=== PATIENT | male | born 1965 | race Caucasian/White ===

== ENCOUNTER 2018-08-26 13:39 | Inpatient (IN) | payer MEDICAID ==
[~2018-08-26] VITALS: Ht 177.8 cm; Wt 113.1 kg
[2018-08-26] MEDS ORDERED: FERR236T3 PO (13:53)
[2018-08-26] MEDS ORDERED: ASPIRIN 81MG TABLET PO ONE (15:15)
[2018-08-26] MEDS: NITROGLYCERIN 0.4MG TABLET SL SL PRN ×2 (15:33→15:44)
[2018-08-26 15:35] LABS: BASOPHILS % 1.2 % (0.0-2.0); EOSINOPHILS % 0.5 % (0.0-5.0); HEMOGLOBIN. 14.1 g/dL (14.0-18.0); MEAN CORPUSCULAR HEMOGLOBIN 24.5 pg (28.0-32.0); MEAN CORPUSCULAR VOLUME 78.6 fL (80.0-94.0); MEAN PLATELET VOLUME 8.6 fl (7.4-10.4); NEUTROPHILS % 67.3 % (40.0-76.0); PLATELET 264 x1000/uL (130-400); RED BLOOD CELL COUNT 5.73 mill/uL (4.7-6.1); RED CELL DISTRIBUTION WIDTH 19.6 % (11.6-14.6)
[2018-08-26 15:42] LABS: CHLORIDE 105 mEq/L (98-107)
[2018-08-26] MEDS ORDERED: ONDANSETRON HCL 4MG/2ML INJ IV ONE (17:00)
[2018-08-26] MEDS ORDERED: HYDROCODONE/ACETAMINOPHEN 5/325MG TABLET PO ONE (17:00)
[2018-08-26] MEDS ORDERED: SODIUM POLYSTYRENE SULFONATE 15 G/60 ML BOT PO ONE (18:00)
[2018-08-26 21:21] VITALS: BP 117/71
[2018-08-26 22:00] VITALS: BP 112/71
[2018-08-26] MEDS ORDERED: ONDANSETRON HCL 4MG/2ML INJ IV PRN (23:15)
[2018-08-26] MEDS ORDERED: DIPHENHYDRAMINE 50MG/ML VIAL IV PRN (23:15)
[2018-08-26] MEDS ORDERED: MAGNESIUM/ALUMINUM HYDROXIDE/SIMETHICONE 30ML UDC PO PRN (23:15)
[2018-08-26] MEDS ORDERED: GUAIFENESIN 200MG/10ML SUGAR FREE UDC PO PRN (23:15)
[2018-08-26] MEDS ORDERED: DOCUSATE SODIUM 100MG CAPSULE PO PRN (23:15)
[2018-08-26] MEDS ORDERED: HYDRALAZINE 20MG/ML VIAL IV PRN (23:15)
[2018-08-26] MEDS ORDERED: IPRATROPIUM/ALBUTEROL 0.5-3(2.5)MG/3ML NEB INH PRN (23:15)
[2018-08-26] MEDS ORDERED: NA PHOS,M-B/NA PHOS,DI-BA ENEMA 118ML PR PRN (23:15)
[2018-08-26] MEDS ORDERED: HYDROCODONE/ACETAMINOPHEN 10/325MG TABLET PO PRN (23:15)
[2018-08-26] MEDS ORDERED: CLONIDINE 0.1MG TABLET PO PRN (23:15)
[2018-08-26] MEDS ORDERED: LORAZEPAM 2MG/ML CPJ IV PRN (23:15)
[2018-08-26] MEDS ORDERED: ACETAMINOPHEN 325MG TABLET PO PRN (23:15)
[2018-08-27] VITALS: BP 117/66
[2018-08-27] MEDS: HYDROMORPHONE HCL/PF 2MG/ML CPJ IV PRN ×7 (00:01→23:50)
[2018-08-27 04:00] VITALS: BP 103/70
[2018-08-27] MEDS: SODIUM CHLORIDE 0.9% INJ 3ML FLUSH IVF SCH ×3 (06:47→23:04)
[2018-08-27 07:11] LABS: CHLORIDE 108 mEq/L (98-107)
[2018-08-27 07:20] LABS: BASOPHILS % 0.5 % (0.0-2.0); EOSINOPHILS % 1.1 % (0.0-5.0); HEMATOCRIT. 40.9 % (42.0-52.0); LYMPHOCYTES % 33.5 % (20.0-50.0); MEAN CORPUSCULAR HEMOGLOBIN 24.8 pg (28.0-32.0); MEAN CORPUSCULAR VOLUME 78.1 fL (80.0-94.0); MEAN PLATELET VOLUME 8.7 fl (7.4-10.4); MONOCYTES % 9.8 % (2.0-8.0); NEUTROPHILS % 55.1 % (40.0-76.0); PLATELET 244 x1000/uL (130-400); RED BLOOD CELL COUNT 5.25 mill/uL (4.7-6.1); RED CELL DISTRIBUTION WIDTH 19.7 % (11.6-14.6); T4 FREE 1.03 ng/dL (0.76-1.46)
[2018-08-27 07:21] LABS: LDL CHOLESTEROL 67 mg/dL (5-100)
[2018-08-27 07:22] LABS: CREATINE KINASE 43 IU/L (39-308); HDL CHOLESTEROL 38 mg/dL (40-59)
[2018-08-27 07:23] LABS: CREATINE KINASE MB FRACTION < 1.0 ng/mL (0.5-3.6)
[2018-08-27 08:00] VITALS: BP 114/63
[2018-08-27 08:09] LABS: *AMPHETAMINES SCREEN URINE NEGATIVE (NEGATIVE); *BARBITURATES SCREEN URINE NEGATIVE (NEGATIVE); CANNABINOID URINE SCREEN NEGATIVE (NEGATIVE); OPIATES URINE SCREEN PRESUMTIVE POSITIVE (NEGATIVE); PHENCYCLIDINE URINE SCREEN NEGATIVE (NEGATIVE)
[2018-08-27 08:10] LABS: *BENZODIAZEPINES SCREEN URINE NEGATIVE (NEGATIVE); *COCAINE SCREEN URINE NEGATIVE (NEGATIVE); METHADONE URINE SCREEN NEGATIVE (NEGATIVE)
[2018-08-27] MEDS: ASPIRIN 81MG EC TABLET PO SCH (08:37)
[2018-08-27] MEDS: ENOXAPARIN 30MG/0.3ML SYR SUBCUT SCH ×2 (08:39→20:07)
[2018-08-27] MEDS: METOPROLOL TARTRATE 25MG TABLET PO SCH ×2 (11:56→20:08)
[2018-08-27 12:00] VITALS: BP 107/66
[2018-08-27 16:00] VITALS: BP 111/77
[2018-08-27 16:53] LABS: CREATINE KINASE 40 IU/L (39-308)
[2018-08-27 16:54] LABS: CREATINE KINASE MB FRACTION < 1.0 ng/mL (0.5-3.6)
[2018-08-27 20:00] VITALS: BP 110/64
[2018-08-27] MEDS ORDERED: ATORVASTATIN CALCIUM 20MG TABLET PO SCH (21:00)
[2018-08-28] VITALS: BP 113/69
[2018-08-28] MEDS: HYDROMORPHONE HCL/PF 2MG/ML CPJ IV PRN ×3 (03:12→10:09)
[2018-08-28 04:00] VITALS: BP 113/71
[2018-08-28] MEDS: SODIUM CHLORIDE 0.9% INJ 3ML FLUSH IVF SCH (06:36)
[2018-08-28 08:05] VITALS: BP 115/78
[2018-08-28] MEDS: METOPROLOL TARTRATE 25MG TABLET PO SCH (10:08)
[2018-08-28] MEDS: ASPIRIN 81MG EC TABLET PO SCH (10:08)
[2018-08-28] MEDS: ENOXAPARIN 30MG/0.3ML SYR SUBCUT SCH (10:08)
[2018-08-28 13:49] VITALS: BP 117/78
== END 2018-08-28 14:31 | disposition home or self-care (01) | DRG 203 ==
LOC: ER 13:39 → 5WST 17:50 → ENRESERV 19:43
PROVIDERS: ADMIT Internal Medicine; ATTEND Internal Medicine
DX: M94.0 Chondrocostal junction syndrome [Tietze] (principal); D64.9 Anemia, unspecified; E66.9 Obesity, unspecified; G89.29 Other chronic pain; I10 Essential (primary) hypertension; Z90.49 Acquired absence of other specified parts of digestive tract; Z98.84 Bariatric surgery status; Z68.35 Body mass index [BMI] 35.0-35.9, adult
CPT/HCPCS: 36415; 71045; 80061; 80305; 82550; 82553; 83880; 84439; 84443; 84484; 93005; 96374; 99285; J1170; J1650; J2405

== ENCOUNTER 2018-12-20 16:30 | Inpatient (IN) | payer MEDICAID ==
[~2018-12-20] VITALS: Ht 190.5 cm; Wt 107.5 kg
[~2018-12-20 16:30] MED LIST: CYAN-33 MT; DOCU-138 MT; FERR236T3 PO; FOLI20CA PO; MULT-1146 MT
[2018-12-20] MEDS ORDERED: MORPHINE SULFATE 4 MG/ML CPJ (NOT FOR IM USE) IV STA (17:03)
[2018-12-20] MEDS ORDERED: ONDANSETRON HCL 4MG/2ML INJ IV STA (17:03)
[2018-12-20 17:31] LABS: BASOPHILS % 0.5 % (0.0-2.0); EOSINOPHILS % 0.6 % (0.0-5.0); HEMATOCRIT. 35.9 % (42.0-52.0); HEMOGLOBIN. 11.8 g/dL (14.0-18.0); LYMPHOCYTES % 15.8 % (20.0-50.0); MEAN CORPUSCULAR HEMOGLOBIN 27.2 pg (28.0-32.0); MEAN CORPUSCULAR VOLUME 82.7 fL (80.0-94.0); MEAN PLATELET VOLUME 8.6 fl (7.4-10.4); NEUTROPHILS % 76.1 % (40.0-76.0); PLATELET 214 x1000/uL (130-400); RED BLOOD CELL COUNT 4.34 mill/uL (4.7-6.1); RED CELL DISTRIBUTION WIDTH 15.7 % (11.6-14.6)
[2018-12-20 17:36] LABS: CHLORIDE 108 mEq/L (98-107)
[2018-12-20 17:38] LABS: INR 1.1; PROTHROMBIN TIME 10.9 sec (9.6-11.0)
[2018-12-20 17:39] LABS: ETHANOL BLOOD < 10 mg/dL
[2018-12-20 17:44] LABS: CREATINE KINASE 55 IU/L (39-308)
[2018-12-20 17:46] LABS: CREATINE KINASE MB FRACTION < 1.0 ng/mL (0.5-3.6)
[2018-12-20] MEDS ORDERED: DOCUSATE SODIUM 100MG CAPSULE PO PRN (18:15)
[2018-12-20] MEDS ORDERED: ONDANSETRON HCL 4MG/2ML INJ IV PRN (18:15)
[2018-12-20] MEDS ORDERED: HYDROCODONE/ACETAMINOPHEN 5/325MG TABLET PO PRN (18:15)
[2018-12-20] MEDS ORDERED: ACETAMINOPHEN 325MG TABLET PO PRN (18:15)
[2018-12-20] MEDS ORDERED: GUAIFENESIN 200MG/10ML SUGAR FREE UDC PO PRN (18:15)
[2018-12-20] MEDS ORDERED: MAGNESIUM/ALUMINUM HYDROXIDE/SIMETHICONE 30ML UDC PO PRN (18:15)
[2018-12-20] MEDS ORDERED: IPRATROPIUM/ALBUTEROL 0.5-3(2.5)MG/3ML NEB INH PRN (18:15)
[2018-12-20] MEDS ORDERED: CLONIDINE 0.1MG TABLET PO PRN (18:15)
[2018-12-20] MEDS ORDERED: ASPIRIN 81MG TABLET PO ONE (18:15)
[2018-12-20] MEDS ORDERED: ENOXAPARIN 40MG/0.4ML SYR SUBCUT NR (18:36)
[2018-12-20 19:16] LABS: PHOSPHORUS 2.7 mg/dL (2.5-4.9)
[2018-12-20 20:00] VITALS: BP 119/79
[2018-12-20 21:00] VITALS: BP 119/79
[2018-12-20] MEDS: DIPHENHYDRAMINE 50MG/ML VIAL IV PRN (23:36)
[2018-12-21] VITALS: BP 101/64
[2018-12-21] MEDS: MORPHINE SULFATE 2 MG/ML CPJ (NOT FOR IM USE) IV PRN ×2 (00:13→04:30)
[2018-12-21] MEDS ORDERED: OXYC-100 MT (01:42)
[2018-12-21 04:00] VITALS: BP 100/54
[2018-12-21] MEDS ORDERED: ENOXAPARIN 30MG/0.3ML SYR SUBCUT SCH (06:00)
[2018-12-21 07:21] LABS: BASOPHILS % 0.5 % (0.0-2.0); EOSINOPHILS % 1.4 % (0.0-5.0); HEMATOCRIT. 33.8 % (42.0-52.0); LYMPHOCYTES % 36.2 % (20.0-50.0); MEAN CORPUSCULAR VOLUME 82.8 fL (80.0-94.0); MEAN PLATELET VOLUME 8.9 fl (7.4-10.4); MONOCYTES % 12.1 % (2.0-8.0); NEUTROPHILS % 49.8 % (40.0-76.0); PLATELET 176 x1000/uL (130-400); RED BLOOD CELL COUNT 4.08 mill/uL (4.7-6.1); RED CELL DISTRIBUTION WIDTH 15.8 % (11.6-14.6)
[2018-12-21 07:32] LABS: CHLORIDE 109 mEq/L (98-107)
[2018-12-21 07:49] LABS: LDL CHOLESTEROL 75 mg/dL (5-100)
[2018-12-21 07:51] LABS: HDL CHOLESTEROL 39 mg/dL (40-59)
[2018-12-21 08:00] VITALS: BP 116/66
[2018-12-21] MEDS: MORPHINE SULFATE 4 MG/ML CPJ (NOT FOR IM USE) IV PRN ×3 (11:18→21:39)
[2018-12-21 12:00] VITALS: BP 132/83
[2018-12-21] MEDS: DIPHENHYDRAMINE 50MG/ML VIAL IV PRN ×3 (12:32→21:39)
[2018-12-21] MEDS: OXYCODONE HCL/ACETAMINOPHEN 5/325MG TABLET PO PRN (13:59)
[2018-12-21 16:00] VITALS: BP 127/79
[2018-12-21 20:00] VITALS: BP 107/64
[2018-12-22] VITALS (7 sets, daily range): BP systolic 95–108; BP diastolic 55–70
[2018-12-22] MEDS: MORPHINE SULFATE 4 MG/ML CPJ (NOT FOR IM USE) IV PRN ×5 (02:27→22:11)
[2018-12-22] MEDS: DIPHENHYDRAMINE 50MG/ML VIAL IV PRN ×5 (02:27→23:07)
[2018-12-22] MEDS: OXYCODONE HCL/ACETAMINOPHEN 5/325MG TABLET PO PRN (05:16)
[2018-12-22 06:09] LABS: CHLORIDE 110 mEq/L (98-107)
[2018-12-22 06:22] LABS: BASOPHILS % 0.4 % (0.0-2.0); EOSINOPHILS % 1.2 % (0.0-5.0); HEMATOCRIT. 33.9 % (42.0-52.0); HEMOGLOBIN. 10.9 g/dL (14.0-18.0); LYMPHOCYTES % 32.7 % (20.0-50.0); MEAN CORPUSCULAR HEMOGLOBIN 26.9 pg (28.0-32.0); MEAN CORPUSCULAR VOLUME 83.7 fL (80.0-94.0); MEAN PLATELET VOLUME 8.9 fl (7.4-10.4); MONOCYTES % 11.1 % (2.0-8.0); NEUTROPHILS % 54.6 % (40.0-76.0); PLATELET 189 x1000/uL (130-400); RED BLOOD CELL COUNT 4.05 mill/uL (4.7-6.1); RED CELL DISTRIBUTION WIDTH 15.6 % (11.6-14.6)
[2018-12-22] MEDS: ENOXAPARIN 40MG/0.4ML SYR SUBCUT SCH (09:00)
[2018-12-23] VITALS: BP 110/80
[2018-12-23] MEDS: MORPHINE SULFATE 4 MG/ML CPJ (NOT FOR IM USE) IV PRN ×4 (02:13→15:24)
[2018-12-23] MEDS: DIPHENHYDRAMINE 50MG/ML VIAL IV PRN ×3 (03:48→12:44)
[2018-12-23 04:00] VITALS: BP 118/82
[2018-12-23 08:00] VITALS: BP 114/65
[2018-12-23] MEDS: ENOXAPARIN 40MG/0.4ML SYR SUBCUT SCH (09:00)
[2018-12-23 12:00] VITALS: BP 116/78
[2018-12-23 16:00] VITALS: BP 126/86
[2018-12-23 18:57] VITALS: BP 126/86
== END 2018-12-23 19:15 | disposition home or self-care (01) | DRG 203 ==
LOC: ER 16:30 → EDBEDREQ 18:09 → EDBEDREQTM 18:09 → ENRESERV 20:04 → 5WST 21:22
PROVIDERS: ADMIT Internal Medicine; ATTEND Internal Medicine
PROC: 4B02XTZ Measurement of Cardiac Defibrillator, External Approach (ICD-10-PCS; principal; 2018-12-21)
DX: R07.9 Chest pain, unspecified (principal); D64.9 Anemia, unspecified; E04.9 Nontoxic goiter, unspecified; E11.9 Type 2 diabetes mellitus without complications; E66.9 Obesity, unspecified; Z45.02 Encounter for adjustment and management of automatic implantable cardiac defibrillator; E78.5 Hyperlipidemia, unspecified; R55 Syncope and collapse; E87.6 Hypokalemia; Z95.810 Presence of automatic (implantable) cardiac defibrillator; Z98.84 Bariatric surgery status; Z79.899 Other long term (current) drug therapy; Z68.29 Body mass index [BMI] 29.0-29.9, adult; Z79.84 Long term (current) use of oral hypoglycemic drugs
CPT/HCPCS: 36415; 71045; 80048; 80061; 80320; 82550; 82553; 83036; 83605; 83735; 83880; 84100; 84443; 84484; 93005; 93970; 96372; 96374; 96375; 99285; J1200; J1650; J2270; J2405; G0480

== ENCOUNTER 2019-01-15 15:08 | Inpatient (IN) | payer MEDICAID ==
[~2019-01-15] VITALS: Ht 190.5 cm; Wt 104.3 kg
[~2019-01-15 15:08] MED LIST changes: +OXYC-100 MT
[2019-01-15] MEDS ORDERED: MORPHINE SULFATE 4 MG/ML CPJ (NOT FOR IM USE) IV STA (15:42)
[2019-01-15] MEDS ORDERED: ONDANSETRON HCL 4MG/2ML INJ IV STA (15:42)
[2019-01-15 16:25] LABS: BASOPHILS % 0.7 % (0.0-2.0); EOSINOPHILS % 0.5 % (0.0-5.0); HEMATOCRIT. 40.9 % (42.0-52.0); HEMOGLOBIN. 13.3 g/dL (14.0-18.0); LYMPHOCYTES % 20.4 % (20.0-50.0); MEAN CORPUSCULAR VOLUME 82.8 fL (80.0-94.0); MEAN PLATELET VOLUME 8.3 fl (7.4-10.4); MONOCYTES % 9.8 % (2.0-8.0); NEUTROPHILS % 68.6 % (40.0-76.0); PLATELET 243 x1000/uL (130-400); RED BLOOD CELL COUNT 4.95 mill/uL (4.7-6.1); RED CELL DISTRIBUTION WIDTH 16.6 % (11.6-14.6)
[2019-01-15 16:32] LABS: PROTHROMBIN TIME 10.2 sec (9.6-11.0)
[2019-01-15 16:34] LABS: CHLORIDE 107 mEq/L (98-107)
[2019-01-15 16:43] LABS: CREATINE KINASE 50 IU/L (39-308)
[2019-01-15] MEDS ORDERED: ASPIRIN 325MG TABLET PO ONE (18:00)
[2019-01-15] MEDS ORDERED: IOHEXOL-300 100 ML BOTTLE ONE (18:36)
[2019-01-15 22:20] VITALS: BP 129/73
[2019-01-15] MEDS ORDERED: ONDANSETRON HCL 4MG TABLET PO PRN (23:15)
[2019-01-15] MEDS ORDERED: ZOLPIDEM TARTRATE 5MG TABLET PO PRN (23:15)
[2019-01-15] MEDS: MORPHINE SULFATE 2 MG/ML CPJ (NOT FOR IM USE) IV PRN (23:51)
[2019-01-16] MEDS: DIPHENHYDRAMINE 50MG/ML VIAL IV PRN ×2 (00:01→08:08)
[2019-01-16 01:19] VITALS: BP 128/70
[2019-01-16 04:00] VITALS: BP 96/61
[2019-01-16] MEDS ORDERED: PANTOPRAZOLE 40MG DR TABLET PO SCH (06:45)
[2019-01-16 08:00] VITALS: BP 107/64
[2019-01-16] MEDS: MORPHINE SULFATE 2 MG/ML CPJ (NOT FOR IM USE) IV PRN (08:09)
[2019-01-16] MEDS ORDERED: DIPHENHYDRAMINE 25MG CAPSULE PO PRN (08:30)
[2019-01-16] MEDS ORDERED: KETOROLAC 30MG/ML VIAL IV PRN (08:30)
[2019-01-16] MEDS ORDERED: ASPIRIN 81MG TABLET PO SCH (09:00)
[2019-01-16] MEDS ORDERED: PANTOPRAZOLE SODIUM 40 MG/VIAL IV SCH (09:00)
[2019-01-16 12:00] VITALS: BP 108/71
[2019-01-16] MEDS ORDERED: OXYCODONE HCL/ACETAMINOPHEN 5/325MG TABLET PO PRN (12:15)
[2019-01-16] MEDS ORDERED: AMIODARONE HCL 200 MG TABLET PO SCH (12:15)
[2019-01-16 16:06] LABS: BASOPHILS % 0.4 % (0.0-2.0); HEMATOCRIT. 38.4 % (42.0-52.0); HEMOGLOBIN. 12.6 g/dL (14.0-18.0); LYMPHOCYTES % 25.7 % (20.0-50.0); MEAN CORPUSCULAR HEMOGLOBIN 26.8 pg (28.0-32.0); MEAN CORPUSCULAR VOLUME 82.1 fL (80.0-94.0); MEAN PLATELET VOLUME 8.6 fl (7.4-10.4); MONOCYTES % 10.2 % (2.0-8.0); NEUTROPHILS % 62.7 % (40.0-76.0); PLATELET 253 x1000/uL (130-400); RED BLOOD CELL COUNT 4.68 mill/uL (4.7-6.1); RED CELL DISTRIBUTION WIDTH 16.6 % (11.6-14.6)
[2019-01-16 16:12] LABS: CHLORIDE 107 mEq/L (98-107)
[2019-01-16 18:00] VITALS: BP 135/75
== END 2019-01-16 16:45 | disposition home or self-care (01) | DRG 48 ==
LOC: ER 15:08 → 5WST 17:52 → EDBEDREQTM 17:55 → EDBEDREQ 17:55 → ENRESERV 21:04
PROVIDERS: ADMIT Internal Medicine; ATTEND Internal Medicine
PROC: 4B02XTZ Measurement of Cardiac Defibrillator, External Approach (ICD-10-PCS; principal; 2019-01-16)
DX: G90.8 Other disorders of autonomic nervous system (principal); D64.9 Anemia, unspecified; R07.9 Chest pain, unspecified; R10.9 Unspecified abdominal pain; G40.909 Epilepsy, unspecified, not intractable, without status epilepticus; Z95.810 Presence of automatic (implantable) cardiac defibrillator; Z98.84 Bariatric surgery status; Z86.79 Personal history of other diseases of the circulatory system; Z79.899 Other long term (current) drug therapy; Z76.5 Malingerer [conscious simulation]
CPT/HCPCS: 36415; 71045; 74177; 80048; 82550; 83605; 83735; 83880; 84484; 86850; 86900; 93005; 93306; 99291; J1200; J2270; J2405; Q0163; Q9967

== ENCOUNTER 2019-01-25 12:40 | Emergency (ER) | payer MEDICAID ==
[~2019-01-25] VITALS: Ht 190.5 cm; Wt 104.0 kg
[2019-01-25] MEDS ORDERED: TRAMADOL 50MG TABLET PO ONE (13:30)
[2019-01-25] MEDS ORDERED: ACETAMINOPHEN 500MG TABLET PO ONE (13:30)
[2019-01-25] MEDS ORDERED: KETOROLAC 30MG/ML VIAL IV ONE (13:30)
[2019-01-25 13:48] VITALS: BP 110/66
[2019-01-25 14:11] LABS: BASOPHILS % 0.3 % (0.0-2.0); EOSINOPHILS % 0.8 % (0.0-5.0); HEMATOCRIT. 37.2 % (42.0-52.0); HEMOGLOBIN. 12.1 g/dL (14.0-18.0); MEAN CORPUSCULAR HEMOGLOBIN 26.9 pg (28.0-32.0); MEAN CORPUSCULAR VOLUME 82.6 fL (80.0-94.0); MEAN PLATELET VOLUME 8.8 fl (7.4-10.4); MONOCYTES % 8.6 % (2.0-8.0); NEUTROPHILS % 78.3 % (40.0-76.0); PLATELET 215 x1000/uL (130-400); RED CELL DISTRIBUTION WIDTH 16.3 % (11.6-14.6)
[2019-01-25 14:18] LABS: CHLORIDE 106 mEq/L (98-107)
[2019-01-25] MEDS ORDERED: MORPHINE SULFATE 4 MG/ML CPJ (NOT FOR IM USE) IV ONE (15:00)
== END 2019-01-25 15:21 | disposition left against medical advice (07) ==
LOC: ER 12:40 → CANBEDREQ 18:43
DX: R55 Syncope and collapse (principal); Z98.84 Bariatric surgery status; Z95.810 Presence of automatic (implantable) cardiac defibrillator
CPT/HCPCS: 36415; 71045; 82962; 83880; 84484; 93005; 99284; J1885

== ENCOUNTER 2022-06-16 15:22 | Emergency (ER) | payer MEDICAID ==
[~2022-06-16] VITALS: Ht 190.5 cm; Wt 118.0 kg
[2022-06-16 15:29] VITALS: BP 166/97
== END 2022-06-16 22:34 | disposition left against medical advice (07) ==
LOC: ER 15:22
DX: Z53.21 Procedure and treatment not carried out due to patient leaving prior to being seen by health care provider (principal)